=== PATIENT | female | born 1955 | race African-American/Black ===

== ENCOUNTER 2020-12-28 20:42 | Inpatient (IN) | payer MEDICARE, MEDICAID ==
[~2020-12-28] VITALS: Ht 157.5 cm; Wt 96.6 kg
[~2020-12-28 20:42] MED LIST: NITR100C MT
[2020-12-28 23:53] LABS: BASOPHILS % 0.3 % (0.0-2.0); HEMATOCRIT. 35.1 % (36.0-48.0); HEMOGLOBIN. 10.7 g/dL (12.0-16.0); LYMPHOCYTES % 21.3 % (20.0-50.0); MEAN CORPUSCULAR HEMOGLOBIN 23.9 pg (28.0-32.0); MEAN CORPUSCULAR VOLUME 78.3 fL (81.0-99.0); MONOCYTES % 10.7 % (2.0-8.0); NEUTROPHILS % 64.7 % (40.0-76.0); PLATELET 413 x1000/uL (130-400); RED BLOOD CELL COUNT 4.49 mill/uL (4.2-5.4); RED CELL DISTRIBUTION WIDTH 17.6 % (11.6-14.6)
[2020-12-28 23:55] LABS: CHLORIDE 111 mEq/L (98-107)
[2020-12-29 01:50] LABS: CLARITY URINE TURBID (CLEAR); COLOR URINE DARK YELLOW (YELLOW); KETONES URINE TRACE (NEGATIVE); LEUKOCYTE ESTERASE URINE 2+ (NEGATIVE); NITRITE URINE NEGATIVE (NEGATIVE); OCCULT BLOOD URINE 2+ (NEGATIVE); PROTEIN URINE 2+ (NEGATIVE)
[2020-12-29] MEDS ORDERED: CEFTRIAXONE 1 G PREMIX 50 ML IV NR (03:30)
[2020-12-29] MEDS ORDERED: CLONAZEPAM 0.5MG TABLET PO PRN (03:30)
[2020-12-29] MEDS ORDERED: CLONIDINE 0.1MG TABLET PO PRN (03:45)
[2020-12-29 11:49] LABS: HEMOGLOBIN. 9.5 g/dL (12.0-16.0); LYMPHOCYTES % 28.2 % (20.0-50.0); MEAN CORPUSCULAR HEMOGLOBIN 24.3 pg (28.0-32.0); MEAN PLATELET VOLUME 9.2 fl (7.4-10.4); MONOCYTES % 11.2 % (2.0-8.0); NEUTROPHILS % 55.6 % (40.0-76.0); PLATELET 344 x1000/uL (130-400); RED CELL DISTRIBUTION WIDTH 17.5 % (11.6-14.6)
[2020-12-29 11:57] LABS: CHLORIDE 114 mEq/L (98-107)
[2020-12-29 15:14] VITALS: BP 143/81
[2020-12-29 16:00] VITALS: BP 143/81
[2020-12-29] MEDS: ENOXAPARIN 30MG/0.3ML SYR SUBCUT SCH (18:09)
[2020-12-29 20:00] VITALS: BP 157/70
[2020-12-30] VITALS: BP 157/74
[2020-12-30] MEDS: CEFTRIAXONE 1,000 MG in DEXTROSE 5% WATER 50 ML IV SCH (01:28)
[2020-12-30 04:00] VITALS: BP 155/91
[2020-12-30] MEDS: ENOXAPARIN 30MG/0.3ML SYR SUBCUT SCH ×2 (06:34→17:22)
[2020-12-30 08:00] VITALS: BP 154/82
[2020-12-30 12:00] VITALS: BP 136/90
[2020-12-30] MEDS ORDERED: VANCOMYCIN 1500MG in DEXTROSE 5% WATER 250ML IV NR (16:00)
[2020-12-30 20:00] VITALS: BP 150/83
[2020-12-31] VITALS: BP 140/74
[2020-12-31] MEDS: CEFTRIAXONE 1,000 MG in DEXTROSE 5% WATER 50 ML IV SCH (02:07)
[2020-12-31 04:00] VITALS: BP 141/75
[2020-12-31] MEDS ORDERED: VANCOMYCIN 750 MG PREMIX 150 ML IV SCH (04:00)
[2020-12-31] MEDS: ENOXAPARIN 30MG/0.3ML SYR SUBCUT SCH ×2 (05:01→18:48)
[2020-12-31 07:54] LABS: BASOPHILS % 0.2 % (0.0-2.0); CHLORIDE 106 mEq/L (98-107); EOSINOPHILS % 4.9 % (0.0-5.0); HEMATOCRIT. 31.8 % (36.0-48.0); HEMOGLOBIN. 10.2 g/dL (12.0-16.0); LYMPHOCYTES % 32.9 % (20.0-50.0); MEAN CORPUSCULAR HEMOGLOBIN 24.3 pg (28.0-32.0); MEAN CORPUSCULAR VOLUME 75.9 fL (81.0-99.0); MEAN PLATELET VOLUME 8.8 fl (7.4-10.4); MONOCYTES % 13.1 % (2.0-8.0); NEUTROPHILS % 48.9 % (40.0-76.0); PLATELET 332 x1000/uL (130-400); RED BLOOD CELL COUNT 4.19 mill/uL (4.2-5.4); RED CELL DISTRIBUTION WIDTH 17.2 % (11.6-14.6)
[2020-12-31 08:00] VITALS: BP 154/93
[2020-12-31] MEDS: VANCOMYCIN 750 MG PREMIX 150 ML IV SCH ×2 (11:13→22:18)
[2020-12-31 12:00] VITALS: BP 145/92
[2020-12-31 16:00] VITALS: BP 135/84
[2020-12-31] MEDS: FLUOXETINE HCL 10 MG CAPSULE PO SCH (16:01)
[2020-12-31] MEDS ORDERED: FLUO10CA28 PO (17:09)
[2020-12-31] MEDS ORDERED: TRAZ-251 PO (17:09)
[2020-12-31 20:00] VITALS: BP 125/73
[2020-12-31] MEDS: TRAZODONE HCL 50MG TABLET PO SCH (21:12)
[2020-12-31] MEDS: ACETAMINOPHEN 325MG TABLET PO PRN (23:36)
[2021-01-01] VITALS: BP 139/87
[2021-01-01] MEDS: CEFTRIAXONE 1,000 MG in DEXTROSE 5% WATER 50 ML IV SCH (01:12)
[2021-01-01 04:00] VITALS: BP 139/83
[2021-01-01] MEDS: ENOXAPARIN 30MG/0.3ML SYR SUBCUT SCH ×2 (05:43→18:48)
[2021-01-01 08:00] VITALS: BP 126/82
[2021-01-01] MEDS: FLUOXETINE HCL 10 MG CAPSULE PO SCH (10:16)
[2021-01-01] MEDS: VANCOMYCIN 750 MG PREMIX 150 ML IV SCH (10:16)
[2021-01-01 12:00] VITALS: BP 136/89
[2021-01-01 15:49] LABS: CHLORIDE 105 mEq/L (98-107)
[2021-01-01 16:00] VITALS: BP 141/87
[2021-01-01] MEDS: VANCOMYCIN 1 G PREMIX 200 ML IV SCH (18:48)
[2021-01-01 20:00] VITALS: BP 122/77
[2021-01-01] MEDS: TRAZODONE HCL 50MG TABLET PO SCH (21:10)
[2021-01-02] VITALS: BP 143/82
[2021-01-02] MEDS: CEFTRIAXONE 1,000 MG in DEXTROSE 5% WATER 50 ML IV SCH (00:54)
[2021-01-02 04:00] VITALS: BP 123/80
[2021-01-02] MEDS: ENOXAPARIN 30MG/0.3ML SYR SUBCUT SCH ×2 (05:52→17:54)
[2021-01-02] MEDS: VANCOMYCIN 1 G PREMIX 200 ML IV SCH ×2 (05:52→17:54)
[2021-01-02 08:00] VITALS: BP 143/82
[2021-01-02] MEDS: FLUOXETINE HCL 10 MG CAPSULE PO SCH (08:39)
[2021-01-02 12:00] VITALS: BP 154/95
[2021-01-02 16:00] VITALS: BP 136/87
[2021-01-02 20:00] VITALS: BP 136/67
[2021-01-02] MEDS: QUETIAPINE FUMARATE 25MG TABLET PO SCH (21:03)
[2021-01-02] MEDS: TRAZODONE HCL 50MG TABLET PO SCH (21:04)
[2021-01-03] VITALS: BP 143/82
[2021-01-03] MEDS: CEFTRIAXONE 1,000 MG in DEXTROSE 5% WATER 50 ML IV SCH (01:44)
[2021-01-03 04:00] VITALS: BP 152/92
[2021-01-03] MEDS: ENOXAPARIN 30MG/0.3ML SYR SUBCUT SCH ×2 (05:04→18:36)
[2021-01-03] MEDS: VANCOMYCIN 1 G PREMIX 200 ML IV SCH (05:05)
[2021-01-03] MEDS: ACETAMINOPHEN 325MG TABLET PO PRN (05:16)
[2021-01-03 07:22] LABS: CHLORIDE 106 mEq/L (98-107)
[2021-01-03 08:00] VITALS: BP 148/90
[2021-01-03] MEDS: FLUOXETINE HCL 10 MG CAPSULE PO SCH (09:17)
[2021-01-03] MEDS: QUETIAPINE FUMARATE 25MG TABLET PO SCH ×2 (09:17→21:02)
[2021-01-03 12:00] VITALS: BP 113/72
[2021-01-03 16:00] VITALS: BP 150/89
[2021-01-03 20:00] VITALS: BP 115/64
[2021-01-03] MEDS: TRAZODONE HCL 50MG TABLET PO SCH (21:02)
[2021-01-04] VITALS: BP 100/58
[2021-01-04 04:00] VITALS: BP 106/69
[2021-01-04] MEDS: ENOXAPARIN 30MG/0.3ML SYR SUBCUT SCH ×2 (06:55→18:20)
[2021-01-04 07:59] VITALS: BP 119/59
[2021-01-04] MEDS: FLUOXETINE HCL 10 MG CAPSULE PO SCH (09:07)
[2021-01-04] MEDS: QUETIAPINE FUMARATE 25MG TABLET PO SCH ×2 (09:08→20:01)
[2021-01-04] MEDS: NITROFURANTOIN 100MG M/M CAPSULE PO SCH ×2 (11:10→20:01)
[2021-01-04 12:00] VITALS: BP 138/81
[2021-01-04 16:00] VITALS: BP 107/71
[2021-01-04 20:00] VITALS: BP 124/77
[2021-01-04] MEDS: TRAZODONE HCL 50MG TABLET PO SCH (20:01)
[2021-01-05] VITALS: BP 126/78
[2021-01-05 04:00] VITALS: BP 120/70
[2021-01-05] MEDS: ENOXAPARIN 30MG/0.3ML SYR SUBCUT SCH ×2 (05:31→18:01)
[2021-01-05] MEDS: QUETIAPINE FUMARATE 25MG TABLET PO SCH ×3 (09:00→20:27)
[2021-01-05] MEDS: NITROFURANTOIN 100MG M/M CAPSULE PO SCH ×2 (09:08→20:27)
[2021-01-05] MEDS: FLUOXETINE HCL 10 MG CAPSULE PO SCH (09:08)
[2021-01-05 12:00] VITALS: BP 104/50
[2021-01-05] MEDS ORDERED: QUET25TA PO (13:49)
[2021-01-05 15:16] VITALS: BP 104/50
[2021-01-05 16:00] VITALS: BP 136/79
[2021-01-05 20:00] VITALS: BP 109/65
[2021-01-05] MEDS: TRAZODONE HCL 50MG TABLET PO SCH (20:27)
== END 2021-01-06 00:20 | DRG 812 ==
LOC: EDBD 20:42 → ER 20:42 → MICUSO 12-29 01:57 → 7EST 12-29 12:33
PROVIDERS: ADMIT Family Medicine Adult Medicine; ATTEND Family Medicine Adult Medicine
DX: D64.9 Anemia, unspecified (principal); R78.81 Bacteremia; N39.0 Urinary tract infection, site not specified; F33.1 Major depressive disorder, recurrent, moderate; I10 Essential (primary) hypertension; Z20.822 Contact with and (suspected) exposure to COVID-19; B96.89 Other specified bacterial agents as the cause of diseases classified elsewhere; Z98.84 Bariatric surgery status; Z59.00 Homelessness unspecified; Z79.899 Other long term (current) drug therapy; Z99.3 Dependence on wheelchair
CPT/HCPCS: 36415; 71045; 80048; 80053; 80202; 80305; 81003; 82962; 83605; 83880; 84145; 84484; 85025; 87426; 93005; 97110; 97116; 97162; 97165; 99285; C1893; J0696; J1650; J3370; J7040; J7060; U0003; U0005